=== PATIENT | male | born 1960 | race Caucasian/White ===

== ENCOUNTER 2016-03-25 12:54 | Emergency (ER) | payer MEDICARE ==
--- NOTE | 2016-03-25 13:07 | ER Document Report ---
ED Medical Screen (RME) - General Stated Complaint: LACERATION TO LEFT THUMB Notes: patient was using a table saw when he cut off the top of his left thumb with some of the nail bed. no evidence of bleeding at this time tetanus 3.5 years ago I have greeted and performed a rapid initial assessment of this patient. A comprehensive ED assessment and evaluation of the patient, analysis of test results and completion of the medical decision making process will be conducted by additional ED providers. TRAVEL OUTSIDE OF THE [place] IN LAST 30 DAYS: No - Related Data Allergies/Adverse Reactions: No Known Allergies Allergy (Unverified 01/06/16 11:48) Past Medical History Pulmonary Medical History: Reports: Hx COPD Renal/ Medical History: Reports: Hx Kidney Stones Musculoskeltal Medical History: Reports Hx Arthritis Past Surgical History: Reports: Hx Orthopedic Surgery - Immunizations Immunizations up to date: No Hx Diphtheria, Pertussis, Tetanus Vaccination: No
[2016-03-25] MEDS ORDERED: OXYCODONE-ACETAMINOPHEN 5-325 MG TABLET PO ONE (13:08)
--- NOTE | 2016-03-25 15:30 | ER Document Report ---
[id number] TRAVEL OUTSIDE OF THE [place] IN LAST 30 DAYS: No - HPI Patient complains to provider of: Laceration Occurred: This morning - 11 AM Onset/Duration: Sudden Context: Injury - General Chief Complaint: Laceration Stated Complaint: LACERATION TO LEFT THUMB Notes: Patient is a 55-year-old male presenting to the emergency department after cutting the tip of his left thumb with a table saw at 11 AM. Patient is here visiting his nephew from [place], and he is helping his nephew make custom furniture. Patient's last tetanus shot was approximately 3 and half years ago. (ARELY KOWALSKI) - Related Data Allergies/Adverse Reactions: No Known Allergies Allergy (Verified 03/25/16 13:08) Past Medical History - General Information source: Patient - Social History Smoking Status: Unknown if Ever Smoked Chew tobacco use (# tins/day): No Frequency of alcohol use: None Drug Abuse: None Family History: Reviewed & Not Pertinent Patient has suicidal ideation: No Patient has homicidal ideation: No Pulmonary Medical History: Reports: Hx COPD Renal/ Medical History: Reports: Hx Kidney Stones. Denies: Hx Peritoneal Dialysis Musculoskeltal Medical History: Reports Hx Arthritis Past Surgical History: Reports: Hx Orthopedic Surgery - Immunizations Immunizations up to date: No Hx Diphtheria, Pertussis, Tetanus Vaccination: No Review of Systems - Review of Systems Constitutional: No symptoms reported EENT: No symptoms reported Cardiovascular: No symptoms reported Respiratory: No symptoms reported Gastrointestinal: No symptoms reported Genitourinary: No symptoms reported Male Genitourinary: No symptoms reported Musculoskeletal: See HPI, Other - Left thumb pain Skin: No symptoms reported Hematologic/Lymphatic: No symptoms reported Neurological/Psychological: No symptoms reported -: Yes All other systems reviewed and negative Physical Exam - Notes Notes: GENERAL: Alert, interacts well. No acute distress. HEAD: Normocephalic, atraumatic. EYES: Pupils equal, round, and reactive to light. Extraocular movements intact. ENT: Oral mucosa moist, tongue midline. NECK: Full range of motion. Supple. LUNGS: Clear to auscultation bilaterally, no wheezes, rales, or rhonchi. No respiratory distress. HEART: Regular rate and rhythm. ABDOMEN: Soft, non-tender. Non-distended. Bowel sounds present in all 4 quadrants. EXTREMITIES: Partial avulsion of the nail of the left first digit. Rest of nail intact. Partial avulsion of tip of the first digit. No active bleeding. Cannot be sutured. Full range of motion of the finger and hand. Good pulses and perfusion. NEUROLOGICAL: Alert and oriented x3. Normal speech. PSYCH: Normal affect, normal mood. SKIN: Warm, dry, normal turgor. No rashes or lesions noted. (ARELY KOWALSKI) Course - Re-evaluation Re-evalutation: 03/25/16 15:30 I personally performed the services described in the documentation, reviewed and edited the documentation which was dictated to my scribe in my presence, and it accurately records my words and actions. Patient presents emergency Department with a chief complaint of laceration to the top of his left thumb. He was making furniture with a saw the did not have a cart on it. It nipped the top of his finger x-ray is negative bleeding is well controlled is not on a blood thinner he has no neurological deficits or foreign bodies he has a portion of his nail that is cut off on the nailbed. The rest the nail remains intact there is no active bleeding is good sensation he has an open area they cannot be repaired by suture. At this point we'll clean the wound antibiotic dressing Adaptic wound care antibiotics pain control he is from out of town some giving him the clinic follow-up. I told him if he is unable to get appointment in 2-3 days he needs to be rechecked either here at urgent care and discussed reasons Fredia return sooner (ANTONIO PRINGLE) Discharge - Discharge Clinical Impression: Laceration Fingernail avulsion Qualifiers: Encounter type: initial encounter Qualified Code(s): S61.309A - Unspecified open wound of unspecified finger with damage to nail, initial encounter Condition: Stable Disposition: HOME, SELF-CARE Additional Instructions: Avulsed Nail You have had a nail avulsion. The nail will regrow, usually with no deformity. The complete process of regrowth takes about three months. ( Toenails take about twice as long as fingernails.) Your new nail will be thin and easily injured for about a year. The nail bed (the tissue beneath the nail) will be oozy and tender for about ten days. During this time, it will need protection with bandages. The dressings should be changed every day, or whenever wet or dirty. A small amount of ointment directly on the nail bed can keep dressings from sticking. After early healing (five or six days), you'll want to dry out the nail bed. This is usually done with epsom soaks followed by air exposure. When the nail bed has formed a tough, dry, and non-tender membrane, you may stop dressing it. If redness, swelling, increasing tenderness, drainage, or tender lumps in the groin or armpit above the avulsion occur, call the doctor at once. Laceration Care Keep the wound and dressing clean. Unless you were told otherwise, you may shower daily, blotting the wound dry with a clean, unused towel. At other times, If the dressing gets wet or blood soaked, remove it and blot the wound dry, then reapply a new dressing. Unless you were instructed otherwise, dressings should be changed at least daily. If any signs of infection occur (swelling, redness, increasing tenderness, red streaks, tender lumps in the armpit or groin above the laceration, or fever) , see the doctor immediately. Prescriptions: Cephalexin Monohydrate [Keflex 500 mg Capsule] 500 mg PO QID #28 capsule Hydrocodone/Acetaminophen [Erie 5-325 mg Tablet] 1 tab PO TID #15 tablet Scribe Documentation - Scribe Written by Leta:: Arely Kowalski 03/25/2016 [id number] acting as scribe for :: Dilan
== END 2016-03-25 15:45 | disposition home or self-care (01) ==
LOC: ER 12:54
DX: S61.112A Laceration without foreign body of left thumb with damage to nail, initial encounter (principal); W29.8XXA Contact with other powered hand tools and household machinery, initial encounter; Y93.89 Activity, other specified; M79.645 Pain in left finger(s); J44.9 Chronic obstructive pulmonary disease, unspecified
CPT/HCPCS: 99283; 73140; A9270

== ENCOUNTER 2016-06-26 10:26 | Emergency (ER) | payer MEDICARE ==
[2016-06-26] MEDS ORDERED: IBUPROFEN 800 MG TABLET PO ONE (11:43)
--- NOTE | 2016-06-26 11:44 | ER Document Report ---
HPI - HPI Patient complains to provider of: low back pain Onset: Other Onset/Duration: Persistent Quality of pain: Achy Pain Level: 3 Context: Patient presents to the emergency department with complaints of lower left- sided back pain. Patient is visiting from [place]. He reports he has been lifting some heavy furniture and now his back hurts. He denies trauma. He denies fever vomiting diarrhea. He denies urinary or bowel incontinence or retention. He denies numbness tingling. Denies pmh of injury to his back. Associated Symptoms: None Exacerbated by: Denies Relieved by: Denies Similar symptoms previously: Yes Recently seen / treated by doctor: No - DERM Skin Color: Normal Past Medical History - General Information source: Patient - Social History Smoking Status: Current Every Day Smoker Cigarette use (# per day): Yes Frequency of alcohol use: None Drug Abuse: None Family History: Reviewed & Not Pertinent Patient has suicidal ideation: No Patient has homicidal ideation: No Pulmonary Medical History: Reports: Hx COPD Renal/ Medical History: Reports: Hx Kidney Stones. Denies: Hx Peritoneal Dialysis Musculoskeltal Medical History: Reports Hx Arthritis Past Surgical History: Reports: Hx Orthopedic Surgery - hip replacement x 2 - Immunizations Immunizations up to date: No Hx Diphtheria, Pertussis, Tetanus Vaccination: No Vertical Provider Document - CONSTITUTIONAL Agree With Documented VS: Yes Exam Limitations: No Limitations General Appearance: WD/WN, No Apparent Distress - INFECTION CONTROL TRAVEL OUTSIDE OF THE [place] IN LAST 30 DAYS: No - HEENT HEENT: Atraumatic, Normocephalic - NECK Neck: Normal Inspection, Supple. negative: Lymphadenopathy-Left, Lymphadenopathy-Right - RESPIRATORY Respiratory: Breath Sounds Normal, No Respiratory Distress O2 Sat by Pulse Oximetry: 95 - BACK Back: Normal Inspection - No obvious deformity good distal movement and sensation complains of left-sided low back pain no vertebral tenderness no weakness- no signs of infection such as erythema, warmth,swelling - MUSCULOSKELETAL/EXTREMETIES Musculoskeletal/Extremeties: MAEW, FROM, Non-Tender - NEURO Level of Consciousness: Awake, Alert, Appropriate Motor/Sensory: No Motor Deficit - DERM Integumentary: Warm, Dry Adult Front & Back Diagram: 1 - reports osmani Course - Re-evaluation Re-evalutation: 06/26/16 11:50 The patient presents with low back pain without signs of spinal cord compression , cauda equine syndrome, infection, aneurysm, or other serious etiology. The patient is neurologically intact. The patient has good distal movement and sensation, denies urinary or bowel incontinence/retention. Given the extremely low risk of these diagnosis, further testing and evaluation for these possibilities does not appear to be indicated at this time. The patient has been instructed to return if the symptoms worsen or change in anyway. - Vital Signs Vital signs: Temp Pulse Resp BP Pulse Ox 97.4 F 107 H 18 122/82 95 06/26/16 10:37 06/26/16 10:37 06/26/16 10:37 06/26/16 10:37 06/26/16 10:37 Discharge - Discharge Clinical Impression: Elevated blood pressure reading Low back pain Qualifiers: Chronicity: unspecified Back pain laterality: left Sciatica presence: without sciatica Qualified Code(s): M54.5 - Low back pain Condition: Stable Disposition: HOME, SELF-CARE Instructions: Ice Packs ([facility]), Low Back Pain ([facility]), Muscle Strain ([facility]), Muscle Relaxers ([facility]), Ibuprofen (General) ([facility]) Additional Instructions: *You have been evaluated for low left sided back pain *Take medication as prescribed *Rest/Ice packs as indicated, do not lift heavy items. Use your legs when lifting *Follow up with a primary care provider when you return to [place] *Return to ED for worsening condition, changes, needs Monitor your blood pressure. Your blood pressure was elevated today. This may be because you were anxious, in pain or because you need medication. It is important to follow up with your primary care provider for full evaluation. Prescriptions: Cyclobenzaprine HCl [Flexeril 10 Mg Tablet] 10 mg PO TID #30 tablet Ibuprofen [Motrin 800 mg Tablet] 800 mg PO TID #30 tablet Forms: Elevated Blood Pressure
[2016-06-26 12:02] VITALS: BP 120/80
== END 2016-06-26 12:05 | disposition home or self-care (01) ==
LOC: ER 10:26
DX: M54.5 Low back pain (principal); X50.0XXA Overexertion from strenuous movement or load, initial encounter; R03.0 Elevated blood-pressure reading, without diagnosis of hypertension; J44.9 Chronic obstructive pulmonary disease, unspecified; F17.210 Nicotine dependence, cigarettes, uncomplicated
CPT/HCPCS: 99283; A9270

== ENCOUNTER 2016-09-24 08:55 | Emergency (ER) | payer MEDICARE ==
[2016-09-24 09:02] VITALS: BP 141/94
[2016-09-24] MEDS ORDERED: OXYCODONE-ACETAMINOPHEN 5-325 MG TABLET PO ONE (09:16)
--- NOTE | 2016-09-24 09:20 | ER Document Report ---
HPI - HPI Patient complains to provider of: left shoulder pain Onset: Other Onset/Duration: Gradual Quality of pain: Throbbing Severity: Moderate Pain Level: 3 Context: Patient was helping move a dresser on Tuesday, and woke up morning with left shoulder pain. Pain has progressively gotten worse and patient is unable to move the shoulder very well. Associated Symptoms: None Exacerbated by: Movement Relieved by: Denies Similar symptoms previously: No Recently seen / treated by doctor: No - ROS ROS below otherwise negative: Yes Systems Reviewed and Negative: Yes All other systems reviewed and negative - CONSTITUTIONAL Constitutional: DENIES: Fever - EENT EENT: DENIES: Congestion - NEURO Neurology: DENIES: Headache - CARDIOVASCULAR Cardiovascular: DENIES: Chest pain - RESPIRATORY Respiratory: DENIES: Trouble Breathing - GASTROINTESTINAL Gastrointestinal: DENIES: Abdominal Pain - URINARY Urinary: DENIES: Dysuria - MUSCULOSKELETAL Musculoskeletal: REPORTS: Extremity pain - left shoulder - DERM Skin Color: Normal Past Medical History - General Information source: Patient - Social History Smoking Status: Current Every Day Smoker Chew tobacco use (# tins/day): No Frequency of alcohol use: Rare Drug Abuse: None Lives with: Family Family History: Reviewed & Not Pertinent Pulmonary Medical History: Reports: Hx COPD Renal/ Medical History: Reports: Hx Kidney Stones Musculoskeltal Medical History: Reports Hx Arthritis Past Surgical History: Reports: Hx Orthopedic Surgery - hip replacement x 2 - Immunizations Immunizations up to date: No Hx Diphtheria, Pertussis, Tetanus Vaccination: No Vertical Provider Document - CONSTITUTIONAL Agree With Documented VS: Yes General Appearance: WD/WN, No Apparent Distress - INFECTION CONTROL TRAVEL OUTSIDE OF THE [place] IN LAST 30 DAYS: No - HEENT HEENT: Atraumatic, Normocephalic - NECK Neck: Normal Inspection, Supple - RESPIRATORY Respiratory: Breath Sounds Normal, No Respiratory Distress O2 Sat by Pulse Oximetry: 97 - CARDIOVASCULAR Cardiovascular: Regular Rate, Regular Rhythm - GI/ABDOMEN Gastrointestinal: Abdomen Soft - MUSCULOSKELETAL/EXTREMETIES Musculoskeletal/Extremeties: Tender - Joint of the left shoulder. Patient has decreased range of motion with to shoulder, more with raising over head. N/V and sensation intact - NEURO Level of Consciousness: Awake, Alert, Appropriate - DERM Integumentary: Warm, Dry Course - Re-evaluation Re-evalutation: 09/24/16 09:46 X-ray negative and discussed with patient. - Vital Signs Vital signs: Temp Pulse Resp BP Pulse Ox 97.6 F 97 20 141/94 H 97 09/24/16 09:01 09/24/16 09:01 09/24/16 09:01 09/24/16 09:01 09/24/16 09:01 Discharge - Discharge Clinical Impression: Sprain of left shoulder Qualifiers: Encounter type: initial encounter Shoulder sprain type: unspecified sprain Qualified Code(s): S43.402A - Unspecified sprain of left shoulder joint, initial encounter Condition: Good Disposition: HOME, SELF-CARE Additional Instructions: Wear sling for comfort Naproxen as prescribed Ice packs to shoulder Follow-up with your doctor if not better in 1 week Return as needed Prescriptions: Naproxen 500 mg PO BID #20 tablet
--- NOTE | 2016-09-24 09:39 | RADIOLOGY REPORT (SQ) ---
EXAM DESCRIPTION: SHOULDER LEFT 2 OR MORE VIEWS COMPLETED DATE/TIME: 09/24/2016 9:26 am REASON FOR STUDY: injury COMPARISON: None. NUMBER OF VIEWS: Three views. TECHNIQUE: Internal rotation, external rotation, and Y view images acquired of the left shoulder. LIMITATIONS: None. FINDINGS: MINERALIZATION: Osteopenic BONES: No acute fracture or dislocation. No worrisome bone lesions. JOINTS: No glenohumeral dislocation. No acromioclavicular joint widening VISUALIZED LUNGS AND RIBS: No pneumothorax. No rib fracture. SOFT TISSUES: No radiopaque foreign body. OTHER: No other significant finding. IMPRESSION: NEGATIVE STUDY OF THE LEFT SHOULDER. NO RADIOGRAPHIC EVIDENCE OF ACUTE INJURY. TECHNICAL DOCUMENTATION: JOB ID: [id number] [employer]- All Rights Reserved
== END 2016-09-24 09:56 | disposition home or self-care (01) ==
LOC: ER 08:55
DX: S43.402A Unspecified sprain of left shoulder joint, initial encounter (principal); M25.512 Pain in left shoulder; X50.0XXA Overexertion from strenuous movement or load, initial encounter; F17.200 Nicotine dependence, unspecified, uncomplicated
CPT/HCPCS: 99283; 73030; A9270

== ENCOUNTER 2016-12-26 17:47 | Emergency (ER) | payer MEDICARE ==
[2016-12-26 18:02] VITALS: BP 131/94
[2016-12-26] MEDS ORDERED: IBUPROFEN 800 MG TABLET PO ONE (18:47)
--- NOTE | 2016-12-26 18:48 | ER Document Report ---
HPI - HPI Patient complains to provider of: shoulder joint pain Onset: Yesterday Onset/Duration: Gradual Quality of pain: Achy Pain Level: 3 Context: Patient presents complaining of left shoulder joint pain that started yesterday. Patient is right-hand dominant. Patient denies any injury. Patient complains of a popping, crunching noise when he moves his shoulder. Patient does report a history of arthritis. Associated Symptoms: Other - Left shoulder joint pain Exacerbated by: Movement Relieved by: Denies Similar symptoms previously: No Recently seen / treated by doctor: No - ROS ROS below otherwise negative: Yes Systems Reviewed and Negative: Yes All other systems reviewed and negative - CONSTITUTIONAL Constitutional: DENIES: Fever, Chills - EENT EENT: DENIES: Sore Throat, Ear Pain, Eye problems - NEURO Neurology: DENIES: Headache, Weakness, Vision blurred, Dizzinesss / Vertigo - CARDIOVASCULAR Cardiovascular: DENIES: Chest pain - RESPIRATORY Respiratory: DENIES: Trouble Breathing, Coughing - MUSCULOSKELETAL Musculoskeletal: REPORTS: Extremity pain - L shoulder Past Medical History - General Information source: Patient - Social History Smoking Status: Current Every Day Smoker Smoking Education Provided: Yes Frequency of alcohol use: None Drug Abuse: None Occupation: none Family History: Reviewed & Not Pertinent Patient has suicidal ideation: No Patient has homicidal ideation: No Pulmonary Medical History: Reports: Hx COPD Renal/ Medical History: Reports: Hx Kidney Stones. Denies: Hx Peritoneal Dialysis Musculoskeltal Medical History: Reports Hx Arthritis Past Surgical History: Reports: Hx Orthopedic Surgery - hip replacement x 2 - Immunizations Immunizations up to date: No Hx Diphtheria, Pertussis, Tetanus Vaccination: No Vertical Provider Document - CONSTITUTIONAL Agree With Documented VS: Yes Exam Limitations: No Limitations General Appearance: WD/WN, No Apparent Distress - INFECTION CONTROL TRAVEL OUTSIDE OF THE [place] IN LAST 30 DAYS: No - HEENT HEENT: Atraumatic, Normocephalic - NECK Neck: Normal Inspection - RESPIRATORY Respiratory: No Respiratory Distress, Wheezing - Faint scattered O2 Sat by Pulse Oximetry: 99 - CARDIOVASCULAR Cardiovascular: Regular Rate, Regular Rhythm - BACK Back: Normal Inspection - MUSCULOSKELETAL/EXTREMETIES Musculoskeletal/Extremeties: Tender - Left shoulder joint tenderness, crepitus with range of motion. No deformity, no dislocation, No Edema - NEURO Level of Consciousness: Awake, Alert, Appropriate Motor/Sensory: No Motor Deficit - DERM Integumentary: Warm, Dry, No Rash Course - Re-evaluation Re-evalutation: 12/26/16 18:45 Controlled substance database reviewed. Patient is moving here from [place]. Did call and speak with Neal who did confirm that patient did recently get a prescription for oxycodone 10 mg tablets filled on 12/08/2016. Patient was asked if he is on any pain medication and patient denied taking any medications although he presently has prescriptions for oxycodone and Lyrica. Patient advised that no narcotic prescription would be written but he would be given something nonnarcotic to manage his pain. - Vital Signs Vital signs: Temp Pulse Resp BP Pulse Ox 97.7 F 94 20 131/94 H 99 12/26/16 18:01 12/26/16 18:01 12/26/16 18:01 12/26/16 18:01 12/26/16 18:01 Discharge - Discharge Clinical Impression: Pain, joint, shoulder, left, Hx of chronic arthritis Condition: Stable Disposition: HOME, SELF-CARE Instructions: Anti-Inflammatory Medication ([facility]), Arthritis ([facility]) Additional Instructions: Return immediately for any new or worsening symptoms Followup with your primary care provider, call tomorrow to make a followup appointment Prescriptions: Naproxen [Naprosyn 250 Nmg Tablet] 1 tab PO BID #14 tablet Referrals: [facility] [Provider Group] - Follow up as needed [facility] [Provider Group] - Follow up as needed
== END 2016-12-26 18:59 | disposition home or self-care (01) ==
LOC: ER 17:47
DX: M25.512 Pain in left shoulder (principal); M13.80 Other specified arthritis, unspecified site; F17.200 Nicotine dependence, unspecified, uncomplicated; J44.9 Chronic obstructive pulmonary disease, unspecified; Z96.643 Presence of artificial hip joint, bilateral; Z87.442 Personal history of urinary calculi
CPT/HCPCS: 99283; A9270